=== PATIENT | male | born 1985 | race Caucasian/White ===

== ENCOUNTER 2020-02-14 11:07 | Emergency (ER) | payer SELFPAY ==
[~2020-02-14] VITALS: Ht 193 cm; Wt 96.1 kg
[2020-02-14 11:14] VITALS: BP 112/65
--- NOTE | 2020-02-14 11:22 | NUR ---
Cecil SCOTT saw patient in triage. No need for stroke workup.
[2020-02-14] MEDS ORDERED: ACYC-202 PO (12:19)
[2020-02-14] MEDS ORDERED: GABA100C PO (12:19)
[2020-02-14] MEDS ORDERED: METH4TAB3 PO (12:19)
[2020-02-14] MEDS ORDERED: NAPR-56 PO (12:19)
--- NOTE | 2020-02-14 12:28 | NUR ---
pt seen and dc'd by provider
== END 2020-02-14 12:32 | disposition home or self-care (01) ==
LOC: ER 11:09
DX: G51.0 Bell's palsy (principal); Z88.0 Allergy status to penicillin; Z79.899 Other long term (current) drug therapy
CPT/HCPCS: 99283